=== PATIENT | female | born 1995 | race Caucasian/White ===

== ENCOUNTER 2020-11-27 22:33 | Emergency (ER) | payer BC ==
[2020-11-27 23:27] LABS: HEMOGLOBIN 13.6 gm/dl (12.3-15.3); RED BLOOD COUNT 4.8 M/UL (4.00-5.10); WHITE BLOOD COUNT 10.4 K/UL (4.5-11.0)
[2020-11-28 00:02] LABS: BUN/CREATININE RATIO 17 (0-10)
[2020-11-28] MEDS ORDERED: CELEBREX100 MG PO (00:19)
== END 2020-11-28 00:40 | disposition home or self-care (01) ==
LOC: ER1 22:33
PROVIDERS: Emergency Medicine
DX: R07.9 Chest pain, unspecified (principal); F17.200 Nicotine dependence, unspecified, uncomplicated; Z90.89 Acquired absence of other organs; Z88.0 Allergy status to penicillin
CPT/HCPCS: 36415; 71045; 80053; 80307; 81001; 82550; 82553; 83690; 83874; 84439; 84443; 84484; 84703; 85025; 99285